=== PATIENT | male | born 1960 ===

== ENCOUNTER 2017-08-09 07:51 | Emergency (ER) | payer OTHER ==
[2017-08-09 07:56] VITALS: PULSE 71; TEMP 97; O2SAT 98; BMI 28.5
[2017-08-09] MEDS ORDERED: Sodium Chloride 0.9% 1,000 ML IV STA (08:04)
--- NOTE | 2017-08-09 08:06 | ED PDOC ---
HPI: Abdomen Time Seen by Provider: 08/09/17 07:57 Chief Complaint (Nursing): Abdominal Pain Chief Complaint (Provider): Right sided abdominal pain History Per: Patient History/Exam Limitations: no limitations Onset/Duration Of Symptoms: Hrs Outside of [place] travel?: No Current Symptoms Are (Timing): Still Present Location Of Pain/Discomfort: RLQ Quality Of Discomfort: "Pain" Associated Symptoms: denies: Fever, Nausea, Vomiting, Urinary Symptoms Additional History Per: Patient Additional Complaint(s): 57yo male with no past medical history, presents to ED for evaluation of right flank and right lower abdomen pain, present since earlier this morning. Patient denies any fever, nausea, vomiting, dysuria or hematuria. He offers no other medical complaints. Past Medical History Reviewed: Historical Data, Nursing Documentation, Vital Signs Vital Signs: Last Vital Signs Temp 97 F L 08/09/17 07:55 Pulse 71 08/09/17 07:55 Resp BP 150/103 H 08/09/17 07:55 Pulse Ox 98 08/09/17 10:40 - Medical History PMH: No Chronic Diseases - Surgical History Surgical History: No Surg Hx - Family History Family History: States: No Known Family Hx - Home Medications Home Medications: Ambulatory Orders Medication Instructions Recorded Ciprofloxacin HCl [Cipro] 500 mg PO BID #20 tab 08/09/17 Tamsulosin [Flomax] 0.4 mg PO DAILY #5 cap 08/09/17 traMADol [Ultram] 50 mg PO Q8 #10 tab 08/09/17 - Allergies Allergies/Adverse Reactions: Allergies Allergy/AdvReac Type Severity Reaction Status Date / Time No Known Allergies Allergy Verified 08/09/17 08:04 Review of Systems ROS Statement: Except As Marked, All Systems Reviewed And Found Negative Constitutional: Negative for: Fever Gastrointestinal: Positive for: Abdominal Pain. Negative for: Nausea, Vomiting , Diarrhea Genitourinary Male: Negative for: Dysuria, Hematuria Physical Exam - Reviewed Nursing Documentation Reviewed: Yes Vital Signs Reviewed: Yes - Physical Exam Appears: Positive for: Non-toxic, No Acute Distress Head Exam: Positive for: ATRAUMATIC, NORMAL INSPECTION, NORMOCEPHALIC Skin: Positive for: Normal Color Neck: Positive for: Supple Cardiovascular/Chest: Positive for: Regular Rate, Rhythm Respiratory: Positive for: Normal Breath Sounds. Negative for: Respiratory Distress Gastrointestinal/Abdominal: Positive for: Soft, Tenderness (right lower quadant minimal tenderness). Negative for: Guarding, Rebound Back: Negative for: R CVA Tenderness Neurologic/Psych: Positive for: Alert, Oriented. Negative for: Motor/Sensory Deficits - Laboratory Results Result Diagrams: 08/09/17 08:15 08/09/17 08:15 - ECG O2 Sat by Pulse Oximetry: 98 (RA) Pulse Ox Interpretation: Normal Medical Decision Making Medical Decision Making: Time: 0800 Impression: Right lower quadrant abdominal pain Plan: -- CT Abdomen w/o contrast -- Labs -- Toradol 30 mg IV -- IV Fluids Reassess Time: 1034 CT Abdomen IMPRESSION: There is approximately 2.5 mm right UVJ calculus with mild to moderate right- sided hydronephrosis. . No evidence of acute appendicitis or cholelithiasis. Patient stable for discharge home. Scribe Attestation: Documented by Lenore Mitchell acting as a scribe for Maicol Salazar MD. Provider Attestation: All medical record entries made by the Scribe were at my direction and personally dictated by me. I have reviewed the chart and agree that the record accurately reflects my personal performance of the history, physical exam, medical decision making, and the department course for this patient. I have also personally directed, reviewed, and agree with the discharge instructions and disposition. Disposition - Clinical Impression Clinical Impression: Kidney stone - Patient ED Disposition Is Patient to be Admitted: No Counseled Patient/Family Regarding: Diagnosis - Disposition Referrals: Provider RENETTA, [Primary Care Provider] - Ga Ramirez Jr., MD [Staff Provider] - Disposition: Routine/Home Disposition Time: 10:38 Condition: STABLE Prescriptions: Ciprofloxacin HCl [Cipro] 500 mg PO BID #20 tab Tamsulosin [Flomax] 0.4 mg PO DAILY #5 cap traMADol [Ultram] 50 mg PO Q8 #10 tab Instructions: Kidney Stones (ED) Forms: [facility] (Portuguese)
[2017-08-09 08:41] LABS: BASO # 0.1 K/uL (0.0-0.2); BASO % 0.6 % (0.0-2.0); EOS # 0.4 K/uL (0.0-0.7); EOS % 4.5 % (0.0-4.0); HEMATOCRIT 46.9 % (35.0-51.0); LYMPH # 5.4 K/uL (1.0-4.3); LYMPH % 55.3 % (20.0-40.0); MEAN CELL VOLUME 88.5 fl (80.0-94.0); MEAN CORPUSCULAR HEMOGLOBIN 30.2 pg (27.0-31.0); MEAN CORPUSCULAR HGB CONC 34.1 g/dL (33.0-37.0); MEAN PLATELET VOLUME 8.7 fl (7.2-11.7); MONO # 0.7 K/uL (0.0-0.8); MONO % 7.1 % (0.0-10.0); NEUT # 3.2 K/uL (1.8-7.0); NEUT % 32.5 % (50.0-75.0); NRBC % 0.2 % (0.0-0.0); RED CELL DISTRIBUTION WIDTH 14.8 % (11.5-14.5); WHITE BLOOD COUNT 9.8 K/uL (4.8-10.8)
[2017-08-09 08:48] LABS: ALKALINE PHOSPHATASE 119 U/L (38-126); ALT/SGPT 44 U/L (21-72); AST/SGOT 31 U/L (17-59); BLOOD UREA NITROGEN 14 mg/dl (9-20); CALCIUM 9.2 mg/dL (8.4-10.2); CARBON DIOXIDE 24 mmol/L (22-30); CHLORIDE 105 mmol/L (98-107); GFR AFRICAN-AMERICAN > 60; GLUCOSE,RANDOM 150 mg/dL (75-110); POTASSIUM 4.1 MMOL/L (3.6-5.0); SODIUM 143 mmol/l (132-148)
[2017-08-09 08:49] LABS: TOTAL PROTEIN 8.2 G/DL (6.3-8.2)
[2017-08-09 08:50] LABS: ALB/GLOB RATIO 1.3 (1.0-2.1)
--- NOTE | 2017-08-09 10:33 | CT ---
PROCEDURE: CT scan of the abdomen and pelvis dated 08/09/2017 HISTORY: Abdominal and back pain. Rule out kidney stone. COMPARISON: None. TECHNIQUE: Contiguous axial images of the abdomen and pelvis performed without oral or intravenous contrast en. Coronal and Sagittal reformats generated. Radiation dose: Total exam DLP = 914.38 mGy-cm. This CT exam was performed using one or more of the following dose reduction techniques: Automated exposure control, adjustment of the mA and/or kV according to patient size, and/or use of iterative reconstruction technique. FINDINGS: LOWER THORAX: Lung bases clear. No infiltrate effusion or basilar pneumothorax. There is small hiatal hernia with irregular wall thickening of the esophagus likely due to protrusion of gastric mucosa. Possibility of esophagitis not excluded. LIVER: Liver exhibits normal size measuring nearly 17 cm in CC dimension. No obvious hepatic mass collection or calcification. GALLBLADDER AND BILE DUCTS: No gallbladder is physiologically distended. No evidence of intraluminal gallbladder calculi. PANCREAS: The visualized portions of the pancreas appear grossly unremarkable without mass collection or calcification. No significant pancreatic ductal dilatation SPLEEN: . The spleen exhibits normal size and attenuation pattern without mass collection or calcification ADRENALS: . The no adrenal lesions. KIDNEYS AND URETERS: Kidneys exhibit relatively symmetric size. There is a small approximately listen 2.5 mm not right UVJ calculus with mild moderate right-sided hydronephrosis. Infiltration changes seen in the mesentery adjacent to the right renal pelvis and proximal right ureter BLADDER: Urinary bladder is incompletely distended which presumably accounts for thick-walled appearance. Muscular hypertrophy may contribute REPRODUCTIVE: Prostate gland measures approximately 4.8 cm in transverse dimension. APPENDIX: There is a normal-appearing retrocecal appendix. No evidence of acute appendicitis. BOWEL: Evaluation of the bowel is limited due to the lack of oral contrast material. The stomach is incompletely distended. Visualized loops of small bowel exhibit normal contour and caliber. No evidence of acute mechanical small bowel obstruction. The stool and air seen throughout the large bowel. No evidence of definitive abnormal mural wall thickening. . PERITONEUM: Unremarkable. No fluid collection. No free air. Small fat containing bilateral inguinal hernias are present. There is a small fat containing umbilical hernia. LYMPH NODES: Unremarkable. No enlarged lymph nodes. VASCULATURE: Unremarkable. No aortic aneurysm. BONES: Minor multilevel degenerative spondylosis of the lower thoracic and lumbar spine. OTHER FINDINGS: None. IMPRESSION: There is approximately 2.5 mm right UVJ calculus with mild to moderate right-sided hydronephrosis. . No evidence of acute appendicitis or cholelithiasis. .
[2017-08-09 10:50] VITALS: BP 132/74
== END 2017-08-09 11:01 | disposition home or self-care (01) ==
LOC: H.ER 07:51 → SUPCPDRO 07:51 → H.ER 11:01
DX: N13.2 Hydronephrosis with renal and ureteral calculous obstruction (principal)
CPT/HCPCS: 74176; 80053; 85025; 96374; 96375; 99284; J1885; J2405; J7040